=== PATIENT | female | born 1955 | race Caucasian/White ===

== ENCOUNTER 2017-08-17 05:41 | Day surgery (SDC) | payer BC ==
[2017-08-16 14:15] LABS: BASOPHILS 0.4 % (0-2); EOSINOPHILS 1.3 % (0-7); HEMATOCRIT 34.2 % (36.0-48.0); HEMOGLOBIN 11.5 g/dL (12-16); IMMATURE GRANULOCYTES 0.2 % (0-5); LYMPHOCYTES 37.7 % (15-50); MCH 30.6 pg (26.0-34.0); MCHC 33.6 g/dL (31.0-37.0); MEAN PLATELET VOLUME 9.9 fL (7.4-10.4); MONOCYTES 9.4 % (2-11); PLATELET COUNT 195 10x3/uL (130-400); RBC 3.76 10x6/uL (4.00-5.40); RDW 11.5 % (11.5-14.5); WBC 5.5 10x3/uL (4.8-10.8)
[2017-08-16 14:37] LABS: APTT 24.3 SECONDS (22.8-39.4); INR 1.03 (0.85-1.17); PROTIME 13.1 SECONDS (11.6-15.0)
[~2017-08-17] VITALS: Ht 165.1 cm; Wt 63.5 kg
--- NOTE | ~2017-08-17 | OP ---
PATIENT NAME: SHRADDHA GRAY MEDICAL RECORD: [id number] :53 LOCATION:D.[facility] ADMISSION DATE: SURGEON: YONI CONKLIN MD DATE OF OPERATION: 08/17/2017 PREOPERATIVE DIAGNOSIS: Postmenopausal bleeding. POSTOPERATIVE DIAGNOSIS: Postmenopausal bleeding. PROCEDURE: Hysteroscopy, D&C. SURGEON: Yoni Conklin MD ESTIMATED BLOOD LOSS: Minimal. INTRAVENOUS FLUIDS: Per anesthesia record. ANESTHESIA: General by LMA. FINDINGS: 1. Grossly normal-appearing external genitalia. 2. Cystocele noted. 3. Grossly normal appearing cervix. 4. Atrophic appearing endometrial lining. COMPLICATIONS: None apparent. HYSTEROSCOPIC FLUID LOSS: Approximately 50 cc of 0.9 normal saline. SPECIMENS: Endometrial curettings. PROCEDURE: The patient was taken to the operating room where general anesthesia was achieved without difficulty. The patient was then prepped and draped in normal sterile fashion in the dorsal lithotomy position in the [facility]. At that point, the patient was prepped and draped in normal sterile fashion. The bladder was straight catheterized with only approximately 2-5 cc of return of urine. At this point, a Graves speculum was placed in the vagina and the cervix was identified and grasped on its anterior lip with a single-toothed tenaculum. Uterus sounded to approximately 6 cm and the uterus was dilated to approximately 6 mm, at which point, the hysteroscope was introduced under direct visualization. Normal appearing cavity was noted. Gentle curettage was performed with minimal return of tissue. Due to the patient's postmenopausal status. The hysteroscope and tenaculum were then removed. The patient tolerated the procedure well, was transferred to postanesthesia recovery stable without incident. TRANSINT:[id number] Voice Confirmation ID: [id number] DOCUMENT ID: [id number] OPERATIVE REPORT [id number] SHRADDHA GRAY YONI CONKLIN MD at 1436 CC: [id number] DICTATION DATE: 08/17/17813 [employer] SCIENTIST: 08/17/17 1032 [facility] 08/17/17 [place] [address]
[~2017-08-17 05:41] MED LIST: ASCORBIC ACID500 MG PO; FLUVOXAMINE MA100 M1 PO
[2017-08-17 06:38] VITALS: BP 114/63; Ht 165.1 cm; Wt 63.5 kg
== END 2017-08-17 09:45 | disposition home or self-care (01) ==
LOC: D.OPS 05:41 → D.PAN 09:45 → D.OPS 09:45
PROVIDERS: Anesthesiology; Obstetrics & Gynecology
DX: N95.0 Postmenopausal bleeding (principal); Z01.812 Encounter for preprocedural laboratory examination; Z85.3 Personal history of malignant neoplasm of breast; F32.9 Major depressive disorder, single episode, unspecified